=== PATIENT | male | born 2000 | race Caucasian/White ===

== ENCOUNTER 2019-08-02 11:32 | Emergency (ER) | payer SELFPAY ==
[2019-08-02 11:34] VITALS: BP 141/73; PULSE 59; RESP 16; TEMP 36.8; O2SAT 100; BMI 26.3
--- NOTE | 2019-08-02 11:49 | CT_ITS ---
STUDY: CT BRAIN WITHOUT CONTRAST REASON FOR EXAM: Male, 18 years old. Laceration of the forehead following injury. RADIATION DOSAGE (If Supplied By Facility): CTDIvol = ( 60.81 ) mGy, DLP = ( 998.67 ) mGycm TECHNIQUE: Transaxial CT imaging of the brain was performed without administration of intravenous contrast material. Individualized dose optimization techniques were used for this CT. COMPARISON: No relevant priors. FINDINGS: Soft tissue laceration overlying the left frontal bone. Normal calvarium. Normal size ventricles and extra-axial spaces for the patient's age. Normal white matter tracts of the cerebral hemispheres. Normal basal ganglia and thalami. Normal brainstem. Normal cerebellum. There is no intracranial hemorrhage. There are no findings of an acute ischemic infarction. Normal visualized paranasal sinuses. CT/Brain/Head without Contrast IMPRESSION: Small soft tissue laceration overlying the left frontal bone. Electronically Signed: Joe Smith, at 13:08 EST , Service support ,
[2019-08-02] MEDS: Diphth,Pertuss(Acell),Tet Vac 0.5 ML Vial IM (12:12)
[2019-08-02] MEDS: Lidocaine/Epi/Tetracaine 50 ML 1 APPLIC TOPICAL (12:14)
--- NOTE | 2019-08-02 14:49 | ED.DCSUM_ITS ---
- ER Visit Summary Date of Service: 08/02/19 Chief Complaint: Forehead laceration History of Present Illness: The patient is a 18 M presenting with forehead laceration. Patient states this occurred just prior to arrival. He states that the cover to his truck bed came down and hit him in the head. He did not lose consciousness. He has been nauseated with no vomiting. His last tetanus is unknown. No other injuries. Physical Examination: Vitals are stable. Patient is afebrile. Alert no acute distress. HEENT exam 6 cm laceration superior left forehead. Neck is nontender Lungs are clear and equal bilaterally. Heart is regular rate and rhythm. Extremities are unremarkable. Skin is warm and dry. No focal neurologic deficit. Remainder of exam is unremarkable. Emergency Department Course and Treatment: Patient was given tetanus IM. CT head shows small soft tissue laceration overlying the left frontal bone. Wound was copiously irrigated. Anesthetized with LET and local lidocaine. Wound was closed with 10, 6-0 simple sutures. Patient tolerated this well. Advised wound care instructions. Advised to follow-up with primary care physician. Advised return to ED for worsening complaints. Disposition: Discharge home Impression: Forehead laceration, laceration repair This note was generated with [employer] dictation software. It may contain incorrect words, spelling, and punctuation that were not noted in review of the chart prior to signing ED Disposition - Plan for ED Patient: Referrals: Care Physician,No Primary [Primary Care Provider] -
--- NOTE | 2019-08-02 14:52 | ED.DEP ---
ED Disposition - Plan for ED Patient: Instructions: HEAD INJURY, No Wake-Up (Adult), LACERATION, Face (Suture or Tape) Referrals: Mary Bell MD [STAFF PHYSICIAN] -
[2019-08-02 15:00] VITALS: BP 113/67; PULSE 54; RESP 16; O2SAT 99
== END 2019-08-02 15:01 | disposition home or self-care (01) ==
PROVIDERS: Emergency Provider Emergency Medicine
DX: S01.81XA Laceration without foreign body of other part of head, initial encounter (principal); R11.0 Nausea; W22.8XXA Striking against or struck by other objects, initial encounter; Y93.9 Activity, unspecified; Y92.9 Unspecified place or not applicable
CPT/HCPCS: 12014; 70450; 90471; 90715; 99283